=== PATIENT | male | born 2005 | race Caucasian/White ===

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

== ENCOUNTER 2025-01-14 10:16 | Emergency (ER) | payer BC, SELFPAY ==
--- NOTE | ~2025-01-14 | XR_ITS ---
HISTORY: FB, possible glass in foot plantar aspect COMPARISON: None TECHNIQUE: 3 views of the left foot were performed FINDINGS: No acute fracture or dislocation is appreciated. No significant degenerative disease is noted. The base of the fifth metatarsal is intact. No calcaneal spur is noted. No significant soft tissue swelling is present. No radiopaque foreign body is appreciated. IMPRESSION: No acute fracture or radiopaque foreign body. If the presence of a nonradiopaque foreign body is suspected, a focused ultrasound of the soft tissue s of the plantar aspect of the left foot would provide additional information. Reviewed, dictated and finalized at location A. IMPRESSION: No acute fracture or radiopaque foreign body. If the presence of a nonradiopaque foreign body is suspected, a focused ultraso und of the soft tissues of the plantar aspect of the left foot would provide ad ditional information.
[2025-01-14 10:30] VITALS: BP 148/88; PULSE 84; RESP 20; TEMP 36.3; O2SAT 100
--- NOTE | 2025-01-14 10:33 | ED_ITS ---
HPI - Skin/Abscess/Foreign Bdy General Chief complaint: Skin/Abscess/Foreign Body Stated complaint: glass sliver in left foot Time Seen by Provider: 01/14/25 10:34 Source: patient Mode of arrival: ambulatory Limitations: no limitations History of Present Illness HPI narrative: 19-year-old male states he has glass stuck in to bottom of left foot. Was walking around at his friend's house barefoot and stepped on piece of glass. States he tried to pull it out and it broke off in foot. Painful when Bearing weight. All systems reviewed and negative except as noted above. Related Data Allergies Allergy/AdvReac Type Severity Reaction Status Date / Time No Known Allergies Allergy Verified 01/14/25 10:19 Review of Systems Review of Systems: CONSTITUTIONAL: Denies fever, chills, or sweats. EYES: Denies visual changes, redness, or discharge. ENT: Denies rhinorrhea, congestion, sore throat, or otalgia. CARDIOVASCULAR: Denies chest pain, palpitations, or edema. RESPIRATORY: Denies cough or dyspnea. GASTROINTESTINAL: Denies abdominal pain, nausea, vomiting, or diarrhea. GENITOURINARY: Denies dysuria or hematuria. SKIN: Denies rash or itching. Reports foreign body to left foot. MUSCULOSKELETAL: Denies back pain, joint pain, or myalgia. NEUROLOGIC: Denies headache, numbness, or weakness. PSYCHIATRIC: Denies anxiety or depression. All other systems reviewed are negative, except as documented in HPI. PMFSH Past Medical History Medical History No significant medical problems Social History Social History Living arrangements: with family Occupation/Education: student Comments At time of signature, agree with nursing past medical, surgical, social and fa angie history. There is no relevant family history pertinent to the presenting complaint. Exam Narrative: GENERAL: This is a well-nourished, well-developed patient, in no apparent distress. HEAD: normocephalic, atraumatic. EYES: PERRL. Sclera clear/white. Vision is grossly intact. EARS: External ears normal NOSE: External nose normal NECK: Neck supple, non-tender without lymphadenopathy, masses or thyromegaly. CARDIOVASCULAR: Regular rate and rhythm without murmurs, gallops, or rubs. RESPIRATORY: Clear to auscultation. Breath sounds equal bilaterally. No wheezes, rales, or rhonchi. SKIN: warm, Dry, intact with no suspicious lesions or rash, good texture and turgor. NEURO: awake, alert, and oriented to person, place and time. There were no obvious focal neurologic abnormalities. EXTREMITIES: No joint tenderness, effusion, or edema noted. small puncture wound to plantar aspect L foot. no bleeding. possible raised FB felt on palpation, not visible Course Course Level of Care: Express Care Visit Vital Signs Vital signs: Vital Signs Temperature 36.3 C L 01/14/25 10:30 Pulse Rate 84 01/14/25 10:30 Respiratory Rate 20 01/14/25 10:30 Blood Pressure 148/88 H 01/14/25 10:30 Pulse Oximetry 100 01/14/25 10:30 Oxygen Delivery Room Air 01/14/25 10:30 Temperature 36.3 C L 01/14/25 10:30 Pulse Rate 84 01/14/25 10:30 Respiratory Rate 20 01/14/25 10:30 Blood Pressure 148/88 H 01/14/25 10:30 Pulse Oximetry 100 01/14/25 10:30 Oxygen Delivery Room Air 01/14/25 10:30 Reviewed Procedures Foreign Body Removal Foreign Body #1: Foreign Body Removal Date: 01/14/25 Foreign Body Removal Time: 11:05 Site: foot ( left) Description of foreign body: other ( possible glass) Technique: other (splinter tweezer) Confirmed by:: palpation Foreign Body Removal Narrative: removed very tiny piece of glass using splinter forcep. can not longer palpate FB and not visible on xray. MDM - Skin/Abscess/Foreign Bdy MDM Narrative Medical decision making narrative: pt stating he still has discomfort to bottom of L foot when ambulatory. unable to feel FB after removing with tweezer and not visibly on xray. pt possibly still having some discomfort from soft tissues trauma from puncture wound and digging with tweezer. Recommend he wait a few days and see PCP if still painful. antibiotic given as preventative for wound infection. Please be advised this is a medical document. It is intended for [id number] communication. It is written in medical language and may contain unfamiliar abbreviations or verbiage. Medical documents are intended to carry relevant information, facts as evident, and the clinical opinion of the practitioner at the time of the encounter. This report may have been done utilizing a voice recognition system. Attempts have been made to correct errors. However, there may be uncorrected grammatical, spelling, and recognition errors present. The file time of this note does not necessarily represent the time of service. Imaging Data My impression: agree with radiologist Radiologist's impression: HISTORY: FB, possible glass in foot plantar aspect COMPARISON: None TECHNIQUE: 3 views of the left foot were performed FINDINGS: No acute fracture or dislocation is appreciated. No significant degenerative disease is noted. The base of the fifth metatarsal is intact. No calcaneal spur is noted. No significant soft tissue swelling is present. No radiopaque foreign body is appreciated. IMPRESSION: No acute fracture or radiopaque foreign body. If the presence of a nonradiopaque foreign body is suspected, a focused ultrasound of the soft tissues of the plantar aspect of the left foot would provide additional information. Discharge Plan Discharge Clinical Impression: Acute foreign body of left foot Qualifiers: Encounter type: initial encounter Qualified Code(s): S90.852A - Superficial foreign body, left foot, initial encounter Patient Disposition: Home Condition: Stable Instructions: Antibiotic Form, Soft Tissue Foreign Body (ED) Additional Instructions: the x-ray of your left foot did not show a foreign body. Take antibiotic as prescribed to prevent wound infection. Your tetanus was updated today. See your doctor if you continue to feel pain to bottom of left foot. Patient Language: Arabic Prescriptions: New cephalexin 500 mg capsule 500 mg PO Q12H 7 Days Qty: 14 0RF Follow-up/Referrals: Latonia,Wesley Saez PA-C [Primary Care Provider] - Time of Disposition: 11:20
[2025-01-14] MEDS: TETANUS,DIPHTHERIA,AC PERTUSSIS ADULT (0.5 ML) BOOSTRIX IM (10:55)
== END 2025-01-14 11:30 | disposition home or self-care (01) ==
PROVIDERS: Emergency Provider Nurse Practitioner Family; PCP Physician Assistant
DX: S90.852A Superficial foreign body, left foot, initial encounter (principal); W22.8XXA Striking against or struck by other objects, initial encounter; Z23 Encounter for immunization
CPT/HCPCS: 73630; 90471; 90715; 99213; G0463